=== PATIENT | male | born 1995 | race African-American/Black ===

== ENCOUNTER 2022-12-17 23:54 | Emergency (ER) | payer SELFPAY ==
[~2022-12-17] VITALS: Ht 185.4 cm; Wt 72.1 kg
[2022-12-17 23:57] VITALS: BP_SYST 119
--- NOTE | 2022-12-17 23:57 | NUR ---
Triaged and placed back in the waiting room. VSS, no acute respiratory distress at this time. Accompanied by mom. Instructed to notify ED staff for any changes in condition or worsening of symptoms. Patient verbalized understanding.
--- NOTE | 2022-12-18 00:30 | NUR ---
Called out patient's name in the ER lobby several times - no answer. Will try again later.
--- NOTE | 2022-12-18 02:00 | NUR ---
Called out patient's name in the ER lobby several times - no answer. Will trty again later.
--- NOTE | 2022-12-18 02:30 | NUR ---
Called out patient's name in the ER lobby several times - no answer. Will trty again later.
--- NOTE | 2022-12-18 03:00 | NUR ---
Called out patient's name in the ER lobby several times - no answer. Will trty again later.
--- NOTE | 2022-12-18 03:15 | NUR ---
Patient left without being seen. ER MD aware.
== END 2022-12-18 03:18 | disposition left against medical advice (07) ==
LOC: SED 23:54
DX: F41.9 Anxiety disorder, unspecified (principal); Z53.21 Procedure and treatment not carried out due to patient leaving prior to being seen by health care provider
CPT/HCPCS: 96372; 99281